=== PATIENT | male | born 1955 | race Caucasian/White ===

== ENCOUNTER 2018-05-05 06:59 | Emergency (ER) | payer BC ==
[~2018-05-05] VITALS: Ht 175.3 cm; Wt 90.9 kg
[~2018-05-05 06:59] MED LIST: CLARITIN-D 10 M1 T24 PO; PROTONIX 40MG T40 MG PO; SYNTHROID0.137 MG PO
[2018-05-05 07:02] VITALS: TEMP 97.7
[2018-05-05 07:32] LABS: BASO # 0.1 (0.0-0.2); BASO % 0.9 % (0.0-2.0); EOS # 0.3 (0.0-0.7); EOS % 2.7 % (0-4.0); GRAN # 7.3 (1.4-6.5); GRAN % 70.8 % (42.2-75.2); HEMATOCRIT 42.9 % (42.0-52.0); HEMOGLOBIN 13.4 g/dl (13.5-18.0); LYMPH # 1.6 (1.2-3.4); LYMPH % 15.3 % (20.0-51.0); MEAN CELL VOLUME 82 fl (80.0-100.0); MEAN CORPUSCULAR HEMOGLOBIN 26 pg (27.0-31.0); MEAN CORPUSCULAR HGB CONC 31 g/dl (33.0-37.0); MEAN PLATELET VOLUME 9.7 fl (7.4-10.4); PLATELET COUNT 305 K/mm3 (130-400); RED BLOOD COUNT 5.23 M/mm3 (4.20-5.60); REDCELL DISTRIBUTION WIDTH-CV 14.5 % (11.5-14.5)
[2018-05-05 07:41] LABS: ALANINE AMINOTRANSFERASE 29 U/L (21-72); ALBUMIN 3.5 gm/dL (3.5-5.0); ALKALINE PHOSPHATASE 52 U/L (50-136); ANION GAP 8 mmol/L (7-16); AST,SGOT 31 U/L (15-37); BILIRUBIN,TOTAL 0.5 mg/dL (0.0-1.0); BLOOD UREA NITROGEN 18 mg/dL (9-20); CALCIUM 8.7 mg/dL (8.4-10.2); CARBON DIOXIDE 27 mmol/L (22-30); CHLORIDE 99 mmol/L (98-107); CREATININE, serum 0.98 mg/dL (0.66-1.25); GLUCOSE 100 mg/dL (74-106); POTASSIUM 4.9 mmol/L (3.4-5.0); SODIUM 134 mmol/L (137-145); TOTAL PROTEIN 6.5 gm/dL (6.4-8.2)
[2018-05-05 07:46] LABS: PROTHROMBIN TIME 10.9 SECONDS (9.7-12.8)
[2018-05-05 07:49] LABS: PARTIAL THROMBOPLASTIN TIME 34.1 SECONDS (26.0-37.0)
[2018-05-05 07:54] LABS: TROPONIN-I < 0.012 ng/mL (0.000-0.034)
[2018-05-05] MEDS ORDERED: NEIGHBOR PO (08:00)
[2018-05-05] MEDS ORDERED: PEPCID 20MG TAB20 MG PO (08:00)
[2018-05-05] MEDS ORDERED: MILK OF MA400 MG/52 (08:01)
[2018-05-05] MEDS ORDERED: VALTREX1 GM PO (08:01)
[2018-05-05] MEDS ORDERED: PRILOSEC 20MG20 MG PO (09:17)
[2018-05-05 10:04] VITALS: BP 116/76; PULSE 81
== END 2018-05-05 10:04 | disposition home or self-care (01) ==
LOC: COL.ER 06:59
PROVIDERS: Family Medicine
DX: K21.9 Gastro-esophageal reflux disease without esophagitis (principal); K29.00 Acute gastritis without bleeding
CPT/HCPCS: C9113